=== PATIENT | female | born 1950 | race Native Hawaiian/Other Pacific Islander ===

== ENCOUNTER 2018-06-10 22:30 | Emergency (ER) | payer OTHER ==
[~2018-06-10] VITALS: Ht 160 cm; Wt 85.3 kg
[2018-06-10] MEDS ORDERED: LISITAB PO (22:54)
[2018-06-10] MEDS ORDERED: MOBIC15 MG PO (22:54)
[2018-06-10] MEDS ORDERED: LANTUS100 UNIT/M SC (22:54)
[2018-06-10] MEDS ORDERED: METF500T PO (22:54)
[2018-06-10] MEDS ORDERED: OZEMPIC2 MG/1.5 M SC (22:55)
[2018-06-11 01:20] VITALS: BP 1167/89; TEMP 98.3
== END 2018-06-11 01:20 | disposition home or self-care (01) ==
LOC: ED 22:30
PROC: 0HQ1XZZ Repair Face Skin, External Approach (ICD-10-PCS; principal; 2018-06-10)
DX: S02.2XXB Fracture of nasal bones, initial encounter for open fracture (principal); S02.19XA Other fracture of base of skull, initial encounter for closed fracture; W01.198A Fall on same level from slipping, tripping and stumbling with subsequent striking against other object, initial encounter; Y92.89 Other specified places as the place of occurrence of the external cause
CPT/HCPCS: 90471; 90715; 99283